=== PATIENT | female | born 1985 | race Caucasian/White ===

== ENCOUNTER → 2017-01-18 | Outpatient (CLI) | payer OTHER ==
[~2017-01-18] MED LIST: CLR10 PO; FLUT0.15 NAE; IBUP-103 PO; OXYC1TAB3 PO
== END | disposition home or self-care (01) ==
LOC: C.LAB1850 11:25
PROVIDERS: ATTEND Obstetrics & Gynecology
DX: N93.9 Abnormal uterine and vaginal bleeding, unspecified (principal); L68.0 Hirsutism

== ENCOUNTER → 2017-01-18 | Outpatient (CLI) | payer OTHER | END | disposition home or self-care (01) | LOC: C.PAPS 15:17 | PROVIDERS: ATTEND Obstetrics & Gynecology | DX: Z12.4 Encounter for screening for malignant neoplasm of cervix (principal) ==

== ENCOUNTER → 2017-02-10 | Outpatient (CLI) | payer OTHER ==
[~2017-02-10] MED LIST changes: -OXYC1TAB3 PO
--- NOTE | 2017-02-10 18:58 | DIAGNOSTIC IMAGING REPORT ---
THYROID ULTRASOUND HISTORY: E03.9 Hypothyroidismplease schedule 02/10/17 between 5-6pm if pos COMPARISON: None. FINDINGS: Right lobe: 4.5 x 1.5 x 1.5 cm. No nodules. Slightly heterogeneous. Left lobe: 3.8 x 1.1 x 1.4 cm. No nodules. Slightly heterogeneous. Isthmus: 0.4 cm. No nodules. A few cervical lymph nodes which are subcentimeter in short axis diameter. IMPRESSION: Slightly heterogeneous thyroid gland. No nodules. Electronically signed by: Desean Magallon M.D. 02/10/2017 6:57 PM Dictated Date/Time: 02/10/2017 6:50 PM
== END | disposition home or self-care (01) ==
LOC: C.ULTR 16:17
PROVIDERS: ATTEND Nurse Practitioner
DX: E03.9 Hypothyroidism, unspecified (principal)

== ENCOUNTER → 2017-03-06 | Outpatient (CLI) | payer OTHER ==
[2017-03-06 10:25] LABS: THYROID STIMULATING HORMONE 4.4 uIu/ml (0.300-4.500)
[2017-03-07 13:52] LABS: MICROSOMAL AB 144 IU/ML (<9)
== END | disposition home or self-care (01) ==
LOC: C.LAB 07:26
PROVIDERS: ATTEND Nurse Practitioner
DX: E03.9 Hypothyroidism, unspecified (principal)